=== PATIENT | male | born 1990 | race Caucasian/White ===

== ENCOUNTER 2017-09-23 06:25 | Day surgery (SDC) | payer OTHER ==
[2017-09-12 15:21] VITALS: BMI 29.0
--- NOTE | 2017-09-22 10:30 | HISTORY & PHYSICAL EXAMINATION ---
DATE OF ADMISSION: 09/23/2017 HISTORY OF PRESENT ILLNESS: A 27-year-old male presents with ankle pain, requesting surgical intervention, is located in the right ankle. Pain is described as aching pain and soreness. Condition is graded as a 3 or 4 on a 10-point scale and gets up to about a 7 by the end of the day. Pain began several years ago. He has been having pain with his right ankle since 2011. He notes he has torn ligaments in his ankle while in the [employer], is experiencing aching pains while moving the ankle in certain ways. He notes it constantly gets worse throughout the day. He voiced during activities, it caused him to have pain. Past treatment and tests include surgery in 2011, steroid shots, x-rays, oral medication, physical therapy, ankle brace he had bought [id number]. The patient had overall pain improvement with his last surgery in 2011; however, then he was shortly deployed and unable to completely complete his rehab and physical therapy due to deployment and his pain returned. The deployment was to [facility] while he was in active . We tried to order an additional MRI, this was denied by his insurance company. PAST SURGICAL HISTORY: Ankle surgery in 2011. PAST MEDICAL HISTORY: Unremarkable. MEDICATIONS: Naprosyn. ALLERGIES: No known medical allergies. FAMILY HISTORY: Unremarkable. SOCIAL HISTORY: The patient admits to alcohol use, drinking described as social. REVIEW OF SYSTEMS: Unremarkable except chief complaint. PHYSICAL EXAMINATION: VITAL SIGNS: BP 122/82, height 6 feet 2 inches, weight 225 pounds, body mass index 29. CONSTITUTIONAL: The patient appears well developed and nourished with good attention to body grooming and habitus. HEAD AND FACE: Head is normocephalic and atraumatic without any gross head, face or neck masses. EYES: Conjunctival and pupillary reaction to light and accommodation are normal. EARS, NOSE, MOUTH AND THROAT: Unremarkable. Lips and palate pink and moist without any lesions, ____ or gingival hypertrophy. NECK: Neck is supple. Trachea is midline without any adenopathy or crepitus palpable. CARDIOVASCULAR: Normal S1, S2, without murmur, gallops, rubs or clicks noted. Cardiovascular exam is normal. RESPIRATORY: Chest is symmetric. No scars are visible. No port or pacemaker. LUNGS: Clear to auscultation bilaterally and equal. GASTROINTESTINAL: Abdominal organs, bladder and kidneys show no abnormalities, masses, tenderness or rigidity. LYMPHATIC: No popliteal, inguinal or supraclavicular lymphadenopathy noted. LOWER EXTREMITY: DP palpable. PT palpable. DERMATOLOGIC: Unremarkable with no rash, subcutaneous nodules, lesions or ulcers observed. There is cicatrix over his ankle. NEUROLOGICAL: Touch, pin, vibratory pain, proprioception sensations are normal. Deep tendon reflexes normal. MUSCULOSKELETAL: Pain is increased on palpation of the right lateral malleolus and lowest tip of the bone. Range of motion shows limited end range of motion, dorsiflexion and plantarflexion. Pain greater on dorsiflexion. Crepitation is noted on attempted range of motion on the right ankle. Pain on palpation of the anterolateral and lateral aspect of the right ankle joint. Pain on palpation of the anterior talofibular ligament and calcaneofibular ligament on the right. MRI without contrast 04/16/2006 of the right ankle shows anterior tibiofibular ligament intact, moderately thickened, there is susceptibility artifact from prior surgery. Calcaneofibular intact, mildly thickened, susceptibility artifact near the attachment of the calcaneofibular ligament. IMPRESSION: 1. Osteoarthritis right ankle. 2. Rule out osteochondritis dissecans right ankle. 3. Difficulty walking. 4. Pain. 5. Status post right ankle surgery 2011, question ligamentous repair. PLAN: Discussed the most common mechanical etiology is discomfort. Treatment consists of rest, ice, analgesics, nonsteroidal anti-inflammatory drugs, physical therapy, steroid shots and orthotics. Due to the nature and severity of deformity, he is requesting surgical intervention. Surgical procedures to be performed: 1. Surgical arthroscopy with extensive debridement and possible open arthrotomy right ankle. 2. General anesthesia as an outpatient at the hospital. 3. Procedure, risks and complications were fully reviewed with the patient. Consent form, foot diagram and illustration reviewed in all their entirety. All of the patient's questions were answered. Complications were discussed in detail with the patient including pain, infection, swelling that may or may not be excessive, pins and needles feeling, numbness, metatarsalgia, excessive bleeding, delayed or nonhealing of bone, delayed or nonhealing of skin, enlarged scar, failure of the procedure, recurrence or worsening of condition which may or may not require further surgery, adverse reaction to anesthesia, allergic reaction to suture or other implant material, the patient will be required to be in a surgery shoe for a minimum of 1-2 weeks and not return to sneaker for 2-4 weeks depending on postop edema. The patient is aware this is an elective type procedure and I recommend a second opinion. The patient understood. Consent form was signed with a copy of the foot diagram issued to the patient. Verbal and written postop instructions were given. The patient will be started on CPM machine immediately postoperatively if able to be covered by insurance; to date, this has not happened. The patient will return to the office for postop check or sooner if medically necessary. Instructed to keep dressing clean, dry and intact until seen at the office. At time of the preoperative appointment, prescriptions for Keflex and Percocet were dispensed.
[~2017-09-23] VITALS: Ht 185.4 cm; Wt 102.3 kg
[~2017-09-23 06:25] MED LIST: LACTATED RINGER'S 1000ML 1,000 ML IV SCH
[2017-09-23 06:48] VITALS: BP 139/82; PULSE 84; TEMP 36.6; O2SAT 99; Ht 185.4 cm; Wt 102.3 kg
[2017-09-23] MEDS ORDERED: ROPIVACAINE 0.5% 5 MG/ML 30 ML VIAL ONE (07:18)
[2017-09-23] MEDS ORDERED: BUPIVACAINE/EPINEPHRINE 0.5% MPF 1:200,000 10 ML VIAL ONE (07:18)
[2017-09-23] MEDS ORDERED: SODIUM CHLORIDE 0.9% 1000ML 1,000 ML IV SCH (07:24)
--- NOTE | 2017-09-23 07:24 | History & Physical Bridge Note ---
H&P Re-Evaluation Bridge Note: I have examined the patient, reviewed the History & Physical and in the interval since the performance of the History & Physical I have noted the following changes of clinical significance: No changes noted
[2017-09-23] MEDS ORDERED: NURSING VERBAL MED ORDER STA (07:25)
--- NOTE | 2017-09-23 07:26 | Discharge Instructions ---
Discharge Instructions Date of Service Sep 23, 2017. Admission Reason for Admission: Ostechondral Disease Right Ankle Discharge Discharge Diagnosis / Problem: same as diagnosis Discharge Goals Goal(s): Decrease discomfort Activity Recommendations Activity Limitations: as noted below Medications: * Resume previous medications unless instructed by your surgeon. * Take your medications as prescribed. Call our office ([phone]) at any time, if you experience severe pain that does not subside shortly after taking your pain medication. Activity: * You may walk on your operated foot/ankle using the surgical shoe or cast/splint. Do not put any weight on your operated foot/ankle without wearing the surgical shoe or cast sandal.. Special Care: * Keep your bandage clean and dry. Do not remove your bandage unless otherwise instructed. A small amount of blood may appear on the bandage over the surgical site. Call our office ([phone]) if you bandage becomes blood-soaked or wet. * Elevate your operated foot/ankle on pillows, above the level of your heart, as often as possible during the first 2-3 days following surgery. Keep your knee flexed slightly with a pillow under your knee when you elevate your foot/ankle. * Apply a ice bag to your foot/ankle over the operative site for 20-30 minutes out of each hour while you are awake. Do not allow the ice bag to directly contact bare skin. * Avoid bumping or handling any pins visible in your toes. If any pin feels or appears loose, call the office ([phone]). * Take your oral temperature in the morning and at bedtime. Call our office ([phone]) if your temperature rises above 101 degrees Fahrenheit. Call your surgeon's office at ([phone]) for any problems or concerns such as excessive bleeding and/or pain unrelieved by your prescribed pain medications. If you have any questions, please do not hesitate to ask them. Avoid all tobacco products. If you need help to stop smoking, call [place]'s FREE QUITLINE at . This is a free call. Follow-up: Follow-up with Dr. Singh . Current Hospital Diet Patient's current hospital diet: Discharge Diet Recommended Diet: Regular Diet Pending Studies Studies pending at discharge: no Medical Emergencies . Who to Call and When: Medical Emergencies: If at any time you feel your situation is an emergency, please call 911 immediately. . Non-Emergent Contact Non-Emergency issues call your: Primary Care Provider . "Provider Documentation" section prepared by Juany Lind. . VTE Core Measure Inpt VTE Proph given/why not?: Treatment not indicated
[2017-09-23] MEDS ORDERED: CEFAZOLIN SOD 2000MG/15 ML IV PUSH IV ONE (07:29)
[2017-09-23] MEDS ORDERED: PROPOFOL IV EMULSION 10 MG/ML 20 ML VIAL IV ONE (07:39)
[2017-09-23] MEDS ORDERED: FENTANYL CITRATE INJ 50 MCG/1 ML 2 ML VIAL ONE ×2 (07:39→08:59)
[2017-09-23] MEDS ORDERED: DEXAMETHASONE SOD INJ 4 MG/ML VIAL ONE ×2 (07:39→08:40)
[2017-09-23] MEDS ORDERED: LIDOCAINE HCL 2% 2 ML VIAL (20MG/ML) ONE (07:39)
[2017-09-23] MEDS ORDERED: MIDAZOLAM HCL 1 MG/ML 2ML VIAL ONE ×2 (07:39→07:46)
[2017-09-23] MEDS ORDERED: ONDANSETRON INJ 2 MG/ML 2 ML VIAL ONE (07:39)
[2017-09-23] MEDS ORDERED: EpINEphrine HCL INJ 1 MG/ML 5ML SYRINGE ONE (08:25)
[2017-09-23] MEDS ORDERED: HYDROmorphone INJ 1 MG/ML SYR IV PRN (08:30)
[2017-09-23] MEDS ORDERED: ONDANSETRON INJ 2 MG/ML 2 ML VIAL IV PRN (08:30)
[2017-09-23] MEDS ORDERED: ATROPINE SULFATE 0.1 MG/ML 5ML SYR IV PRN (08:30)
[2017-09-23] MEDS ORDERED: EpHEDrine SULFATE INJ 50 MG/ML AMP IV PRN (08:30)
[2017-09-23] MEDS ORDERED: LIDOCAINE/EPINEPHRINE 1% 20 ML VIAL ONE (08:40)
--- NOTE | 2017-09-23 10:12 | [facility] Operative Report ---
Operative Report Operative Date Sep 23, 2017. Pre-Operative Diagnosis Osteoarthritis right ankle Rule out osteochondritis dissecans right ankle Post-Operative Diagnosis Osteoarthritis right ankle Osteochondritis dissecans right ankle Procedure(s) Performed Right ankle arthroscopy, right ankle extensive debridement, repair of osteoarthritis dissecans and talar lesion Surgeon Dr. Singh Senior Construction Estimator Surgeon(s) None Estimated Blood Loss 5 mL Specimens No pathology specimens per surgeon Anesthesia Type General I attest to the content of the Intraoperative Record and any orders documented therein. Any exceptions are noted below.
[2017-09-23] MEDS: FENTANYL CITRATE INJ 50 MCG/1 ML 2 ML VIAL IV PRN ×4 (10:35→10:49)
--- NOTE | 2017-09-23 11:10 | Anesthesia Progress Nt - [facility] ---
Anesthesia Post Op Note Date & Time Sep 23, 2017 at 11:10 Vital Signs Pain Intensity: 0 Vital Signs Past 12 Hours Date Time Temp Pulse Resp B/P (MAP) Pulse Ox O2 Delivery O2 Flow Rate FiO2 09/23/17 11:03 90 23 95 09/23/17 11:03 90 23 09/23/17 11:02 36.6 89 20 136/74 96 Room Air 0 09/23/17 11:01 136/74 09/23/17 10:58 87 19 95 09/23/17 10:58 87 19 09/23/17 10:55 143/75 09/23/17 10:53 94 33 09/23/17 10:53 93 33 96 09/23/17 10:50 133/86 09/23/17 10:48 96 22 96 09/23/17 10:48 95 22 09/23/17 10:45 142/74 09/23/17 10:43 102 15 100 09/23/17 10:43 103 15 09/23/17 10:40 137/76 09/23/17 10:38 85 13 99 09/23/17 10:38 86 13 09/23/17 10:35 135/83 09/23/17 10:33 92 19 100 09/23/17 10:33 92 19 09/23/17 10:30 143/84 09/23/17 10:28 87 17 99 09/23/17 10:28 89 17 09/23/17 10:25 119/80 09/23/17 10:23 86 17 09/23/17 10:23 86 17 99 09/23/17 10:20 128/68 09/23/17 10:19 122/69 09/23/17 10:18 36.2 85 20 122/69 99 Oxymask 10 09/23/17 06:48 36.6 84 18 139/82 (101) 99 Room Air Notes Mental Status: alert / awake / arousable, participated in evaluation Pt Amnestic to Procedure: Yes Nausea / Vomiting: adequately controlled Pain: adequately controlled Airway Patency, RR, SpO2: stable & adequate BP & HR: stable & adequate Hydration State: stable & adequate Anesthetic Complications: no major complications apparent
[2017-09-23 11:15] VITALS: BP 137/71; PULSE 83; TEMP 36.6; O2SAT 95
[2017-09-23 11:45] VITALS: BP 128/80; PULSE 90; TEMP 36.6; O2SAT 97
--- NOTE | 2017-09-24 08:01 | OPERATIVE REPORT ---
DATE OF OPERATION: 09/23/2017 SURGEON: Dr. Singh. PREOPERATIVE DIAGNOSES: 1. Osteoarthritis, right ankle. 2. Osteochondritis dissecans, right ankle. 3. Pain, right ankle. 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 PROCEDURES: 1. Surgical arthroscopy of the right ankle with extensive debridement and pain of osteochondritis dissecans. 2. Repair of osteochondral defect anterior lateral right ankle. HEMOSTASIS: None. INJECTABLES: 30 mL of 1% lidocaine with 1:100,000 epinephrine intraarticular preop and 1.5 mL of dexamethasone sodium phosphate, 4 mg per mL, total of 6 mg, intra-articular postoperatively. ESTIMATED BLOOD LOSS: Less than 5 mL. FINDINGS: 1. Osteochondritis dissecans. 2. Anterior lateral osteochondral lesion over the dome of the talus. COMPLICATIONS: None. The patient tolerated the procedure and anesthesia well without complications, transferred to recovery room with vital signs stable and neurovascular status intact. DESCRIPTION OF PROCEDURE: The patient was brought to the OR and placed on the OR table in the supine position. Upon completion of anesthesia, general, a well-padded thigh tourniquet was applied to the right extremity. It should be noted that this was not inflated throughout the case. The extremity was scrubbed, prepped and draped in the usual aseptic fashion. Attention was directed to the medial aspect of left ankle joint. Positioning was placed one in a knee kauffman and the joint was placed in Noel noninvasive distractor. Prior to the incision, the joint was inflated with 20 mL of 1% with 1:1000 epinephrine. Just medial to the tibias anterior tendon and inferior to the joint line, a small stab incision was made after carefully drawn out. Inferior to the joint line, the deep structures were using a small hemostat, blunt trocar and cannula. The anterior medial and anterior lateral portals were created. At this time, inflow was set to 40. The camera was placed in the medial portal and a 2-0 Arthrex shaver was placed over the lateral portal. Large amount of hypertrophic synovium was abraded. The syndesmosis appeared to be intact. The lateral surface dome was intact. There was a lesion in anterior medial down to subchondral bone. The camera and the shaver were switched. It should be noted that the vaporizer was also used to a large amount of hypertrophic synovium. There was a cartilage that was intact over the medial aspect of the joint; however, there is a large amount of hypertrophic synovium. The camera and shaver were again switched for repair of the osteochondritic lesion with debridement using 2-0 and 3-0 Vicryl shaver directly over this anterior to promote fibrocartilage. The joint was copiously lavaged with saline and closure began in the deep structures using 3-0 Vicryl in a simple interrupted fashion. Skin margins were closed using 4-0 nylon and 1.5 mL of dexamethasone phosphate was placed within the joint. Dry sterile compressive dressing consisting of Adaptic, 4 x 4's, Belén and an Juventino were applied. The patient will be weightbearing postoperatively. I attest to the content of the Intraoperative Record and any orders documented therein. Any exception s are noted below.
== END 2017-09-23 12:45 | disposition home or self-care (01) ==
LOC: C.ACU 06:25 → EDSEX 06:25 → C.ACU 12:45
PROVIDERS: ATTEND Podiatrist Foot & Ankle Surgery
DX: M19.071 Primary osteoarthritis, right ankle and foot (principal); M93.271 Osteochondritis dissecans, right ankle and joints of right foot